=== PATIENT | female | born 1970 | race Asian ===

== ENCOUNTER 2017-03-29 12:31 | Day surgery (SDC) | payer OTHER ==
[~2017-03-29] VITALS: Ht 160 cm; Wt 48.0 kg
[2017-03-29 13:43] VITALS: Ht 160 cm; Wt 48.0 kg
[2017-03-29 14:24] VITALS: BP 104/68; PULSE 75; RESP 18
[2017-03-29] MEDS ORDERED: FENTAnyl 50 MCG/ML VIAL ONE (15:38)
[2017-03-29] MEDS ORDERED: MIDAZOLAM 1 MG/ML 2 ML INJ ONE ×2 (15:38)
[2017-03-29 15:55] VITALS: BP 93/66; PULSE 73; RESP 12
--- NOTE | 2017-03-30 05:44 | GILP ---
DATE OF PROCEDURE: 03/29/2017 PROCEDURE PERFORMED: 1. Esophagogastroduodenoscopy and biopsy. 2. Colonoscopy. SURGEON: Eamon Moon MD PREOPERATIVE DIAGNOSES: Abdominal pain. Change in the bowel habits. Weight loss. POSTOPERATIVE DIAGNOSES: 1. Gastritis. 2. Gastric mucosal biopsies were taken for Helicobacter pylori test. 3. Colonoscopy all the way to the cecum. 4. Internal hemorrhoids. 5. No colon neoplasm was identified. INDICATION: The patient is a 47-year-old female patient who had upper abdominal pain and change in the bowel habits associated with weight loss. The patient was scheduled for endoscopy and colonoscopy for further evaluation. The procedures and possible complications were well explained to the patient. The patient understood and consented to the procedure. DESCRIPTION OF PROCEDURE: Under influence of fentanyl and Versed, the gastroscope was carefully introduced into the esophagus and under direct vision it was advanced to the stomach into the pylorus into the duodenal bulb, and descending duodenum. Findings: Esophagus, mucosa was normal. Stomach, the patient had gastritis. Gastric mucosal biopsies were taken for Helicobacter pylori test. Duodenum was normal. The colonoscope was carefully introduced in the rectum. Under direct vision it was advanced all the way to the cecum. Findings: The patient had internal hemorrhoids. No colitis or neoplasm was identified. She tolerated the procedures very well, and there was no complication from the procedures. At the end of procedures she was awake with stable vital signs and she was discharged home in care of her family. IMPRESSION: Please see postop diagnoses. PLAN: 1. Omeprazole 40 mg p.o. q.a.m. 2. Await Helicobacter pylori test report. Dictated By: MD JAYCOB Thompson/[email or web address]/farhad /Document#: [id number]
== END 2017-03-29 19:32 | disposition home or self-care (01) ==
LOC: GIL 12:31
PROVIDERS: ATTEND Internal Medicine Gastroenterology
DX: K29.70 Gastritis, unspecified, without bleeding (principal); K64.8 Other hemorrhoids; R19.4 Change in bowel habit; R63.4 Abnormal weight loss; Z68.1 Body mass index [BMI] 19.9 or less, adult
CPT/HCPCS: 43239; 45378; 84703; J2250; J3010; Z7610; 87081